=== PATIENT | male | born 1995 | race Two or more races ===

== ENCOUNTER 2018-06-05 18:45 | Emergency (ER) | payer OTHER ==
[2018-06-05 18:57] VITALS: BP 115/75
--- NOTE | 2018-06-05 19:14 | EDPHY ---
General Time Seen by Provider: 06/05/18 18:59 Narrative: CLINICAL IMPRESSION: ASSESSMENT/PLAN: Scalp laceration, vasovagal syncope, right 2nd digit laceration DIFFERENTIAL DX: 23-year-old Marshall[place] male presents to the emergency department after he cut his right 2nd digit with a kitchen knife, then experienced a vasovagal syncopal event striking the back of his head on the countertop. Patient has a 3 cm occipital laceration to the scalp. No associated headache, dizziness, vertigo, midline neck pain, upper extremity radiculopathy, vomiting. Vaccines up-to- date. Finger with full range of motion, intact neurovascular exam with small superficial laceration that does not require sutures. Patient has no complaints of chest pain, shortness of breath or preceding dizziness. He reports a history of syncopal events with needles, seeing blood, or having low blood sugar. [place] placed in scalp laceration. Patient tolerated well. Wound care discussed, signs and symptoms of infection reviewed, warning signs return to ED sooner outlined and discharge. ED PROCEDURES: Laceration Repair Verbal consent obtained by patient. Risks discussed, including but not limited to infection, pain, retained foreign body, need for additional repair, poor cosmetic result, tendon damage, nerve damage, poor wound healing, vascular damage. Alternatives to repair discussed. [place] protocol used to establish correct patient, procedure, equipment, director of academic support, and site. Anesthesia obtained by local infiltration. Anesthetized with 0.5% bupivacaine with epinephrine. Laceration location occipital scalp, length 3 cm, depth 2 mm, Repair type simple. Patient was prepped and draped in usual sterile fashion. Hemostasis achieved with direct pressure. Wound explored through full range of motion and entire depth of wound probed and visualized with gloved finger. No suspicion for nerve damage, tendon damage, underlying fracture, vascular damage, foreign body, or contamination. Area was cleansed with [place] and irrigated with sterile saline as per protocol. No foreign body or material removed. Repair method jameson. Ten of sutures placed. Well aligned, closely approximated. wound was dressed with bacitracin. Patient tolerated well with no immediate complications. Wound care: Clean and dry x 24 hours, gently clean with soap and water, cover with topical antibiotic ointment/bandage. Suture/Staple removal: 10 14 Days ED COURSE: Patient doing well after staple placement. Reportedly feeling well. No neurological deficits. Finger does not require sutures. CHIEF COMPLAINT: Right 2nd finger laceration, syncope, scalp laceration HPI: 23-year-old [place] male presents to the emergency department after he slipped with a kitchen knife and cut his right 2nd finger. Patient admits that he saw blood, felt very lightheaded and passed out striking the back of his head on the floor. Patient has a history of fainting episodes when he sees blood, has to get shots, or has "low blood sugar". He is denying headache, dizziness, vertigo, vomiting, acute vision change, neck pain, upper extremity numbness or weakness. He has full range of motion of his right 2nd digit. Tetanus is up-to -date. No chest pain, shortness of breath or recent illness. 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 PHYSICAL EXAM: General Appearance: Alert, oriented, appropriate, cooperative, NAD, well hydrated, non-toxic appearing, VSS, no hypoxia. HEENT: 3 cm vertically oriented occipital scalp laceration. TMs are clear bilaterally no perforation or FB, no injection, no evidence of serous or mucopurulent otitis. No hemotympanum or arriola sign. Oropharynx clear is no erythema or exudates, no tonsillar hypertrophy or asymmetry. Dentition without abnormality. Eyes: PERRLA, no acute vision change, nystagmus, swelling, discharge, pain or photosensitivity. Conjunctiva pink, no pallor or injection Neck: Supple, nontender, no lymphadenopathy, no midline pain, FROM, no meningismus. No UE radiculopathy or weakness. Neg Spurling test. Respiratory: There are no retractions, lungs are clear to auscultation. Cardiac: Regular rate and rhythm, no murmurs or gallops. Skin: Is a small right 2nd finger flap laceration not requiring sutures. Full range of motion. Distal neurovascular in 2 point discrimination intact. MEDICAL DECISION MAKING: Patient was seen independently. Secondary supervising physician at time of evaluation was: Dr Rodriguez . Diagnosis: Scalp laceration, vasovagal syncope, right 2nd digit laceration. New , requires workup Summary: See Assessment and Plan for summary of ED visit Patient Progress: Improved. - History Smoking Status: Never smoked - Objective Vital Signs: Initial Vital Signs Temperature (C) 36.3 C 06/05/18 18:53 Heart Rate 63 06/05/18 18:53 Respiratory Rate 16 06/05/18 18:53 Blood Pressure 115/75 06/05/18 18:53 O2 Sat (%) 98 06/05/18 18:53 O2 Delivery Mode Room Air Allergies/Adverse Reactions: No Known Allergies Allergy (Unverified 06/05/18 18:53) Departure - Departure Disposition: Home, Routine, Self-Care Clinical Impression: Vasovagal syncope Finger laceration Qualifiers: Encounter type: initial encounter Finger: index finger Damage to nail status: without damage Foreign body presence: without foreign body Laterality: right Qualified Code(s): S61.210A - Laceration without foreign body of right index finger without damage to nail, initial encounter Scalp laceration Qualifiers: Encounter type: initial encounter Qualified Code(s): S01.01XA - Laceration without foreign body of scalp, initial encounter Condition: Fair Instructions: Laceration (ED), Syncope (ED) Additional Instructions: DISCHARGE INSTRUCTIONS FROM YOUR DOCTOR Thank you for visiting our emergency department today. Please keep in mind that discharge from the emergency department does not mean that there is nothing wrong - it simply means that we have not identified an emergency condition that requires further evaluation or treatment in the hospital. You should always plan to follow up with primary care for re-evaluation of your condition in the next 2-3 days. If you have been referred to a specialist, please call as soon as possible (today or tomorrow) to schedule your follow up appointment at the appropriate time. PLEASE HAVE 10 JAMESON REMOVED IN 10-14 DAYS. YOU CAN RETURN TO THE EMERGENCY DEPARTMENT OR YOUR PRIMARY CARE FOR SUTURE/STAPLE REMOVAL. AVOID SUBMERGING SUTURES/JAMESON UNDERWATER FOR PROLONGED PERIOD OF TIME UNTIL REMOVED. KEEP WOUND CLEAN AND DRY, COVER WITH ANTIBIOTIC OINTMENT AND BAND-AID. RETURN TO EMERGENCY DEPARTMENT FOR REDNESS, SWELLING, DISCHARGE, WARMTH TO THE SKIN, OR ANY OTHER CONCERNS FOR INFECTION. ] People present with illnesses and injuries in different ways, and it is always possible that we have missed something. You may always return for re-evaluation if symptoms worsen or if they are not improving or if you develop new/different symptoms. Again, thank you for choosing our emergency department. We hope that you feel better. Referrals: LUIS MIGUEL Deshpande,. [Clinic] - As per Instructions
== END 2018-06-05 19:32 | disposition home or self-care (01) ==
PROC: 0HQ0XZZ Repair Scalp Skin, External Approach (ICD-10-PCS; principal; 2018-06-05)
DX: S01.01XA Laceration without foreign body of scalp, initial encounter (principal); S61.210A Laceration without foreign body of right index finger without damage to nail, initial encounter; R55 Syncope and collapse; W01.0XXA Fall on same level from slipping, tripping and stumbling without subsequent striking against object, initial encounter; Y92.9 Unspecified place or not applicable; Y93.9 Activity, unspecified; Y99.9 Unspecified external cause status